=== PATIENT | female | born 1955 | race African-American/Black ===

== ENCOUNTER 2024-01-07 10:41 | Outpatient (CLI) | payer MEDICARE ==
[2024-01-07 12:19] LABS: Hemoglobin 13.3 g/dL (12.0-15.5)
[2024-01-07 12:52] LABS: Anion Gap 15 mmol/L (10-20); BUN (Urea Nitrogen) 18 mg/dL (9.8-20.1); Calc. Creatinine Clearance 0 mL/min (70-130); Calcium 9.9 mg/dL (7.8-10.44); Carbon Dioxide 23 mmol/L (23-31); Chloride 101 mmol/L (98-107); Estimated GFR 51; Glucose 82 mg/dL (80-115); Sodium 135 mmol/L (136-145)
== END 2024-01-07 10:42 | disposition home or self-care (01) ==
LOC: CSHLAB 10:41
PROVIDERS: ATTEND Otolaryngology Plastic Surgery within the Head & Neck
DX: Z01.818 Encounter for other preprocedural examination (principal); H90.72 Mixed conductive and sensorineural hearing loss, unilateral, left ear, with unrestricted hearing on the contralateral side
CPT/HCPCS: 80048; 85014; 85018; 93005; 93010

== ENCOUNTER 2024-01-13 05:31 | Day surgery (SDC) | payer MEDICARE ==
[2024-01-07 11:21] VITALS: BMI 31.1
[2024-01-13] MEDS ORDERED: CEFAZOLIN 2 GM VIAL ONE (06:15)
[2024-01-13] MEDS ORDERED: Mupirocin 2% Ointment 22 GM Tube ONE (06:15)
[2024-01-13] MEDS ORDERED: SUGAMMADEX SODIUM 200 MG/2 ML VIAL ONE ×2 (06:34→07:42)
[2024-01-13] MEDS ORDERED: Dexamethasone 20 MG/5 ML VIAL ONE (06:34)
[2024-01-13] MEDS ORDERED: Ropivacaine 0.5% HCl/PF (150 MG/30 ML VIAL) ONE (06:34)
[2024-01-13] MEDS ORDERED: Ondansetron PF 4 MG/2 ML Vial ONE (06:34)
[2024-01-13] MEDS ORDERED: PROPOFOL 20 ML ONE (06:34)
[2024-01-13] MEDS ORDERED: Midazolam HCl 2 mg/2 ml Vial ONE (06:35)
[2024-01-13] MEDS ORDERED: PHENYLEPHRINE-NS 100 MCG/ML 10 ML SYRINGE ONE (06:35)
[2024-01-13] MEDS ORDERED: fentaNYL 50 mcg/mL 1 mL Vial ONE (06:35)
[2024-01-13] MEDS ORDERED: ePHEDrine Sulfate 50 MG/10 ML VIAL ONE (06:35)
[2024-01-13] MEDS ORDERED: EPINEPHrine 1 MG/ML AMP ONE (07:54)
[2024-01-13] MEDS ORDERED: Lidocaine 1% (PF) 30 ML VIAL ONE (07:54)
== END 2024-01-13 09:45 | disposition home or self-care (01) ==
LOC: CSHSDC 05:31
PROVIDERS: ATTEND Otolaryngology Plastic Surgery within the Head & Neck
PROC: 09H Ear, Nose, Sinus, Insertion (ICD-10-PCS; principal; 2024-01-13)
DX: H90.72 Mixed conductive and sensorineural hearing loss, unilateral, left ear, with unrestricted hearing on the contralateral side (principal); I10 Essential (primary) hypertension; F32.A Depression, unspecified; Z87.891 Personal history of nicotine dependence; Z79.899 Other long term (current) drug therapy
CPT/HCPCS: 69710; J0171; J1100; J2001; J2250; J2405; J2704; J2795; J3010; L8690